=== PATIENT | female | born 1940 | race Caucasian/White ===

== ENCOUNTER → 2018-06-23 15:53 | Outpatient (CLI) | payer MEDICARE, OTHER, SELFPAY ==
--- NOTE | 2018-06-23 15:58 | DI.CT.S_ITS ---
PROCEDURE: CT CHEST WO CON INDICATIONS: INCIDENTAL PULMONARY NODULE TECHNIQUE: Noncontrast 2.0-2.5 mm thick sections acquired from the pulmonary apices to the posterior costophrenic angles. 7 mm thick coronal and sagittal MIP reformats were then acquired. A low radiation dose technique was utilized. COMPARISON: Outside Facility, RG, XR CXR 2V, 04/02/2018, 10:10. FINDINGS: Image quality: Diagnostic, given the low radiation dose technique and absence of IV contrast. Lungs and pleura: Corresponding to the findings on previous outside plain film, there is a soft tissue mass in the base of the lingula that measures 8 x 14 mm in diameter by 11 mm cranial caudal. More anteriorly in the lingular sulcus is a linear scar or atelectasis. No other pulmonary nodules are identified. Mediastinum: Heart size is normal. No pericardial effusion. No mediastinal adenopathy by size criteria. Thoracic aorta and central pulmonary arteries are normal in size. Esophagus is normal in caliber. No hiatal hernia. Bones and chest wall: No suspicious bony lesions. No vertebral body compression fractures. No axillary or supraclavicular adenopathy by size criteria. Thyroid gland appears normal in size.. Abdomen: Visualized upper abdomen solid organs and bowel loops appear normal in the absence of contrast. An 11 mm gallstone is present. IMPRESSION: 1. Solitary lingular nodule corresponding to previous plain film exam. Despite previous history of cervical cancer, solitary metastasis seems unlikely and primary malignancy is of greater concern. Finding could however be benign secondary to previous infection/inflammation. PET/CT imaging is suggested for further evaluation. Fleischner Society criteria for SOLID lung nodule followup. Nodule size (mm)Low-risk patientHigh-risk patient<6 (single or multiple)No routine followup.Optional CT at 12 months. 6-8 (single or multiple)CT at 6-12 months, then optional CT at 18-24 mo.CT at 6-12 months, then CT at 18-24 months. >8 (single)CT at 3 months, PET-CT, or biopsy. Same as for low-risk pts. >8 (multiple)CT at 3-6 months, then optional CT at 18-24 mo.CT at 3-6 months, then CT at 18-24 months. Recommendations do not apply to lung cancer screening, patients with immunosuppression, or patients with known primary cancer. Dictated by: Paul Jamison M.D. on 06/23/2018 at 16:32 Approved by: Paul Jamison M.D. on 06/23/2018 at 16:44
== END ==
PROVIDERS: Family Provider Family Medicine; PCP Family Medicine; Visit Provider Family Medicine
DX: R91.1 Solitary pulmonary nodule (principal); Z85.41 Personal history of malignant neoplasm of cervix uteri
CPT/HCPCS: 71250

== ENCOUNTER → 2019-08-04 09:22 | Outpatient (CLI) | payer MEDICARE, OTHER, SELFPAY ==
--- NOTE | 2019-08-04 | DI.CT.S_ITS ---
PROCEDURE: CT CHEST WO CON INDICATIONS: lung nodule TECHNIQUE: Noncontrast 2.0-2.5 mm thick sections acquired from the pulmonary apices to the posterior costophrenic angles. 7 mm thick axial MIP and 5 mm coronal and sagittal reformats were then acquired. A low radiation dose technique was utilized. COMPARISON: [facility], CT, CT CHEST WO CON, 06/23/2018, 15:57. FINDINGS: Image quality: Diagnostic, given the low radiation dose technique. Lungs and pleura: There is a 1.1 x 1.3 cm lingular nodule, which demonstrates slight interval enlargement (previously 0.8 x 1.2 cm). The nodule also appears slightly increased in density. Mediastinum: Heart size is normal. No pericardial effusion. No mediastinal adenopathy by size criteria. Thoracic aorta and central pulmonary arteries are normal in size. Aortic calcification consistent of atherosclerosis. Esophagus is normal in caliber. No hiatal hernia. Bones and chest wall: No suspicious bony lesions. No vertebral body compression fractures. No axillary or supraclavicular adenopathy by size criteria. Thyroid gland may contain small 3 mm calcified nodule. Abdomen: Visualized upper abdomen solid organs and bowel loops appear normal in the absence of contrast. IMPRESSION: 1. Slight interval enlargement and increased density of a lingular lung nodule. The findings are concerning for primary lung cancer. Recommend a PET CT for followup evaluation. 2. A 3 mm calcified nodule in the left lower lobe. Fleischner Society criteria for SUB-SOLID lung nodule followup. Solitary pure ground-glass nodules<6 mm (ground glass or part solid)No followup needed. 6 mm or larger (ground glass)CT at 6-12 months to confirm persistence, then CT every 2 years until 5 years.6 mm or larger (part solid)CT at 3-6 months to confirm persistence, then annual CT until 5 years if unchanged and solid component remains <6 mm. Multiple sub-solid nodules<6 mmCT at 3-6 months, then CT consider at 2 & 4 years for high risk patients. [address] at 3-6 months. Subsequent management based on most suspicious lesions. Recommendations do not apply to lung cancer screening, patients with immunosuppression, or patients with known primary cancer. Dictated by: Vneessa Courtney M.D. on 08/04/2019 at 12:59 Approved by: Venessa Courtney M.D. on 08/04/2019 at 13:08
== END ==
PROVIDERS: Family Provider Family Medicine; PCP Family Medicine; Visit Provider Family Medicine
DX: R91.1 Solitary pulmonary nodule (principal)
CPT/HCPCS: 71250

== ENCOUNTER → 2021-06-11 08:58 | Outpatient (CLI) | payer MEDICARE, OTHER, SELFPAY ==
[2021-06-11 19:18] LABS: Basophils Absolute Auto 100 /uL (0-100); Basophils Percent Auto 1.1 % (0-2); Eosinophils Absolute Auto 200 /uL (0-450); Eosinophils Percent Auto 4.2 % (2-4); Hematocrit 38.7 % (36-46); Hemoglobin 12.8 g/dL (12.0-16.0); Lymphocytes Absolute Auto 1700 /uL (1100-4500); Lymphocytes Percent Auto 36.6 % (25-40); Mean Corpuscular HGB Conc 33.1 % (30-36); Mean Corpuscular Volume 96.6 fL (80-100); Monocytes Absolute Auto 400 /uL (0-900); Monocytes Percent Auto 8.6 % (3-14); Neutrophils Absolute Auto 2300 /uL (1500-7000); Neutrophils Percent Auto 49.5 % (50-75); Platelet Count 223 X10^3/uL (150-400); Red Blood Cell Count 4.01 X10^6/uL (4.0-5.2); Red Cell Distribution Width 12.9 % (11.6-14.8); White Blood Cell Count 4.7 X10^3/uL (4.5-11.0)
[2021-06-11 19:20] LABS: Add Manual Diff / Slide Review SLIDE REVIEW
[2021-06-11 19:35] LABS: Alanine Aminotransferase 17 IU/L (<35); Albumin 4.4 g/dL (3.5-5.0); Albumin Globulin Ratio 1.6 (1.0-2.8); Alkaline Phosphatase 99 U/L (38-126); Aspartate Aminotransferase 36 IU/L (14-36); BUN Creatinine Ratio 36.6 (6-22); Bilirubin Total 0.3 mg/dL (0.2-1.3); Blood Urea Nitrogen 26 mg/dL (7-17); Calcium 9.7 mg/dL (8.4-10.2); Carbon Dioxide 24 mmol/L (22-32); Chloride 99 mmol/L (98-107); Cholesterol 210 mg/dL (140-199); Estimated Glomerular Filt Rate > 60.0 mL/min (>60); Globulin 2.8 g/dL (1.7-4.1); Glucose 75 mg/dL (80-110); HDL Cholesterol 68 mg/dL (40-60); HEMOLYSIS < 15 (0-50); LDL Cholesterol Calculated 110 mg/dL (<100); Potassium 4.4 mmol/L (3.4-5.1); Sodium 134 mmol/L (137-145); Total Protein 7.2 g/dL (6.3-8.2); Triglycerides 161 mg/dL (35-150)
[2021-06-11 19:50] LABS: Vitamin D 25 Hydroxy (D3) 43.3 ng/mL (30.0-100.0)
[2021-06-11 20:09] LABS: Platelet Estimate Adequate on smear; RBC Morphology Normal Morphology
== END ==
PROVIDERS: Family Provider Family Medicine; PCP Family Medicine; Visit Provider Family Medicine
DX: I10 Essential (primary) hypertension (principal); R00.2 Palpitations; M81.0 Age-related osteoporosis without current pathological fracture; Z13.220 Encounter for screening for lipoid disorders
CPT/HCPCS: 80053; 80061; 82306; 85025

== ENCOUNTER → 2021-12-21 08:34 | Outpatient (CLI) | payer MEDICARE, OTHER, SELFPAY ==
[2021-12-21 19:32] LABS: Add Manual Diff / Slide Review NO; Basophils Absolute Auto 0 /uL (0-100); Basophils Percent Auto 0.8 % (0-2); Eosinophils Absolute Auto 100 /uL (0-450); Hematocrit 37.6 % (36-46); Hemoglobin 12.6 g/dL (12.0-16.0); Lymphocytes Absolute Auto 1600 /uL (1100-4500); Lymphocytes Percent Auto 35.2 % (25-40); Mean Corpuscular HGB Conc 33.6 % (30-36); Mean Corpuscular Hemoglobin 32.3 PG (26-34); Mean Corpuscular Volume 96.3 fL (80-100); Monocytes Absolute Auto 500 /uL (0-900); Monocytes Percent Auto 10.6 % (3-14); Neutrophils Absolute Auto 2400 /uL (1500-7000); Neutrophils Percent Auto 50.4 % (50-75); Platelet Count 230 X10^3/uL (150-400); Red Cell Distribution Width 12.2 % (11.6-14.8); White Blood Cell Count 4.7 X10^3/uL (4.5-11.0)
[2021-12-21 19:43] LABS: Alanine Aminotransferase 15 IU/L (<35); Albumin 4.3 g/dL (3.5-5.0); Albumin Globulin Ratio 1.5 (1.0-2.8); Alkaline Phosphatase 61 U/L (38-126); Aspartate Aminotransferase 29 IU/L (14-36); BUN Creatinine Ratio 13.6 (6-22); Bilirubin Total 0.7 mg/dL (0.2-1.3); Blood Urea Nitrogen 9 mg/dL (7-17); Calcium 9.7 mg/dL (8.4-10.2); Carbon Dioxide 31 mmol/L (22-32); Chloride 102 mmol/L (98-107); Cholesterol 204 mg/dL (140-199); Estimated Glomerular Filt Rate > 60.0 mL/min (>60); Globulin 2.8 g/dL (1.7-4.1); Glucose 88 mg/dL (80-110); HDL Cholesterol 72 mg/dL (40-60); HEMOLYSIS < 15 (0-50); LDL Cholesterol Calculated 116 mg/dL (<100); Potassium 3.9 mmol/L (3.4-5.1); Sodium 138 mmol/L (137-145); Total Protein 7.1 g/dL (6.3-8.2); Triglycerides 81 mg/dL (35-150)
== END ==
PROVIDERS: Family Provider Family Medicine; PCP Family Medicine; Visit Provider Family Medicine
DX: R00.2 Palpitations (principal); I10 Essential (primary) hypertension; Z13.220 Encounter for screening for lipoid disorders
CPT/HCPCS: 80053; 80061; 85025

== ENCOUNTER → 2021-12-26 08:17 | Outpatient (CLI) | payer MEDICARE, OTHER, SELFPAY | PROVIDERS: Family Provider Family Medicine; PCP Family Medicine; Visit Provider Physician Assistant | DX: R30.9 Painful micturition, unspecified (principal) | CPT/HCPCS: 87086 ==

== ENCOUNTER → 2022-10-23 09:13 | Outpatient (CLI) | payer MEDICARE, OTHER, SELFPAY | PROVIDERS: Family Provider Family Medicine; PCP Family Medicine; Visit Provider Nurse Practitioner Adult Health | DX: N89.8 Other specified noninflammatory disorders of vagina (principal) | CPT/HCPCS: 87798; 87801 ==

== ENCOUNTER → 2023-04-03 12:13 | Outpatient (CLI) | payer MEDICARE, OTHER, SELFPAY ==
[2023-04-03 19:22] LABS: Add Manual Diff / Slide Review NO; Basophils Absolute Auto 100 /uL (0-100); Basophils Percent Auto 1.3 % (0-2); Eosinophils Absolute Auto 200 /uL (0-450); HEMOLYSIS < 15 (0-50); Hematocrit 34.3 % (36-46); Hemoglobin 11.5 g/dL (12.0-16.0); Iron 56 ug/dL (37-170); Lymphocytes Absolute Auto 1300 /uL (1100-4500); Lymphocytes Percent Auto 20.4 % (25-40); Mean Corpuscular HGB Conc 33.5 % (30-36); Mean Corpuscular Hemoglobin 31.2 PG (26-34); Mean Corpuscular Volume 93.2 fL (80-100); Monocytes Absolute Auto 700 /uL (0-900); Neutrophils Absolute Auto 4000 /uL (1500-7000); Neutrophils Percent Auto 64.3 % (50-75); Platelet Count 372 X10^3/uL (150-400); Red Blood Cell Count 3.69 X10^6/uL (4.0-5.2); Red Cell Distribution Width 15.7 % (11.6-14.8); White Blood Cell Count 6.3 X10^3/uL (4.5-11.0)
[2023-04-03 19:25] LABS: Alanine Aminotransferase 22 IU/L (<35); Albumin 4.1 g/dL (3.5-5.0); Albumin Globulin Ratio 1.5 (1.0-2.8); Alkaline Phosphatase 77 U/L (38-126); Aspartate Aminotransferase 28 IU/L (14-36); Bilirubin Total 0.4 mg/dL (0.2-1.3); Blood Urea Nitrogen 25 mg/dL (7-17); Calcium 9.1 mg/dL (8.4-10.2); Carbon Dioxide 27 mmol/L (22-32); Chloride 101 mmol/L (98-107); Estimated Glomerular Filt Rate > 60 mL/min (>60); Globulin 2.8 g/dL (1.7-4.1); Glucose 82 mg/dL (80-110); HEMOLYSIS < 15 (0-50); Potassium 4.6 mmol/L (3.4-5.1); Sodium 137 mmol/L (137-145); Total Protein 6.9 g/dL (6.3-8.2)
[2023-04-03 19:34] LABS: Percent Iron Saturation 16 % (15-50); Total Iron Binding Capacity 357 ug/dL (265-497); Transferrin 271 mg/dL (206-381)
== END ==
PROVIDERS: Family Provider Family Medicine; PCP Family Medicine; Visit Provider Family Medicine
DX: I10 Essential (primary) hypertension (principal); D64.9 Anemia, unspecified; E78.2 Mixed hyperlipidemia; E87.6 Hypokalemia
CPT/HCPCS: 80053; 83540; 83550; 85025

== ENCOUNTER → 2023-06-09 08:49 | Outpatient (CLI) | payer MEDICARE, SELFPAY | PROVIDERS: Family Provider Family Medicine; PCP Family Medicine; Visit Provider Family Medicine | DX: R30.0 Dysuria (principal) | CPT/HCPCS: 87077; 87086; 87186 ==

== ENCOUNTER → 2023-06-24 11:58 | Outpatient (CLI) | payer MEDICARE, OTHER, SELFPAY | PROVIDERS: Family Provider Family Medicine; PCP Family Medicine; Visit Provider Family Medicine | DX: R10.32 Left lower quadrant pain (principal); N39.0 Urinary tract infection, site not specified | CPT/HCPCS: 87077; 87086; 87186 ==

== ENCOUNTER → 2023-07-22 12:25 | Outpatient (CLI) | payer MEDICARE, OTHER, SELFPAY | PROVIDERS: Family Provider Family Medicine; PCP Family Medicine; Visit Provider Family Medicine | DX: R39.89 Other symptoms and signs involving the genitourinary system (principal); A49.8 Other bacterial infections of unspecified site; Z16.12 Extended spectrum beta lactamase (ESBL) resistance | CPT/HCPCS: 87077; 87086; 87186 ==

== ENCOUNTER 2023-11-25 09:14 | Emergency (ER) | payer MEDICARE, OTHER, SELFPAY ==
[2023-11-25 09:25] VITALS: BP 199/84; PULSE 69; RESP 14; TEMP 36.4; O2SAT 97; BMI 18.3
[2023-11-25 09:49] VITALS: PULSE 72; O2SAT 97
[2023-11-25 09:58] LABS: Add Manual Diff / Slide Review NO; Basophils Absolute Auto 0 /uL (0-100); Basophils Percent Auto 1.1 % (0-2); Eosinophils Absolute Auto 100 /uL (0-450); Eosinophils Percent Auto 2.2 % (2-4); Hematocrit 39.6 % (36-46); Hemoglobin 13.2 g/dL (12.0-16.0); Lymphocytes Absolute Auto 1300 /uL (1100-4500); Lymphocytes Percent Auto 28.2 % (25-40); Mean Corpuscular HGB Conc 33.3 % (30-36); Mean Corpuscular Hemoglobin 31.1 PG (26-34); Mean Corpuscular Volume 93.4 fL (80-100); Monocytes Absolute Auto 400 /uL (0-900); Monocytes Percent Auto 9.8 % (3-14); Neutrophils Absolute Auto 2700 /uL (1500-7000); Neutrophils Percent Auto 58.7 % (50-75); Platelet Count 311 X10^3/uL (150-400); Red Blood Cell Count 4.24 X10^6/uL (4.0-5.2); White Blood Cell Count 4.5 X10^3/uL (4.5-11.0)
[2023-11-25 10:00] VITALS: PULSE 62; O2SAT 97
--- NOTE | 2023-11-25 10:12 | ED.ABDPAIN ---
HPI - Abdominal Pain General Chief Complaint: Abdominal Pain Stated Complaint: intense pain in L side/spastic colon Time Seen by Provider: 11/25/23 09:39 Source: patient Mode of arrival: Ambulatory History of Present Illness HPI narrative: 83-year-old female here with left lower quadrant abdominal pain. She has not presently having abdominal pain. She is describing more noticeable paroxysms of sharp left lower quadrant abdominal pain that lasts for less than a minute. She has had 3 episodes in the last few months where she would have he is periodic episodes of pain. Typically is improved after having a bowel movement. He has not associated with nausea vomiting fevers or changes in urinary habits or urinary symptoms. Previous abdominal surgeries-had a hysterectomy for cervical cancer. Also does have a history of peripheral vascular disease and fem-pop bypass. Related Data Home Medications Medication Instructions Recorded Confirmed ascorbic acid (vitamin C) 1,000 mg 1,000 mg PO DAILY 05/24/21 07/22/23 tablet Previous Rx's Medication Instructions Recorded amlodipine 5 mg tablet 5 mg PO DAILY #90 tabs 02/28/23 clopidogrel 75 mg tablet 75 mg PO DAILY #90 tabs 09/04/23 rosuvastatin 40 mg tablet 40 mg PO DAILY #30 tabs 09/15/23 losartan 25 mg tablet See Rx Instructions .Route 11/13/23 .COMPLEX #180 tabs Allergies Allergy/AdvReac Type Severity Reaction Status Date / Time No Known Drug Allergies Allergy Unknown Verified 11/25/23 09:31 [NO KNOWN DRUG ALLERGIES] Patient History Medical History (Updated 11/25/23 @ 11:55 by Miahi Brooks MD) Ventral hernia Osteoarthritis of right knee Arthritis of facet joint of cervical spine Osteoporosis Major depressive disorder, single episode, in full remission History of tobacco use Hernia of abdominal wall Solitary pulmonary nodule Surgical History (Updated 02/28/23 @ 17:43 by Roslyn Espinosa MD) Presence of left artificial knee joint Status post hysterectomy History of third molar tooth extraction Status post tubal ligation Family History Father Heart disease Grandfather Heart disease Grandmother Cancer Mother Cancer Grandfather Heart disease Grandmother Heart disease Sister Cancer Social History Smoking Status: Never smoker additional social history: no meat in 60 yrs back to playing tennis [facility] 06/2023 Smoking Status: Never smoker alcohol intake frequency: a few times a month Substance Use Type: does not use Exam Initial Vital Signs Initial Vital Signs: Vital Signs Temperature 97.6 F 11/25/23 09:25 Pulse Rate 69 11/25/23 09:25 Respiratory Rate 14 11/25/23 09:25 Blood Pressure 199/84 H 11/25/23 09:25 Pulse Oximetry 97 11/25/23 09:25 Oxygen Delivery Method Room Air 11/25/23 09:25 Const General: No acute distress [facility] Head: normocephalic and atraumatic Resp Effort & Inspection: normal respiratory effort and able to speak in complete sentences Auscultation: clear to auscultation bilaterally Cardio Other: Regular rhythm rate no murmur or gallop GI Other: Bowel sounds are normal. Abdomen is flat. Abdomen is soft with minimal left lower quadrant tenderness to palpation there is no palpable mass Skin General: dry skin and warm Neuro General: patient alert and patient oriented x3 Course Orders Ordered: ED Orders 11/25/23 09:50 Complete Blood Count AUTO DIFF Stat Comprehensive Metabolic Panel Stat Lipase Stat EKG-12 Lead Stat 11/25/23 10:45 Urine Culture Stat Urine Microscopic Stat 11/25/23 10:56 CT abdomen pelvis w con Stat Vital Signs Vital signs: Vital Signs - 8 hr 11/25/23 12:00 Pulse Rate 65 Blood Pressure 160/74 H Pulse Oximetry 98 Oxygen Delivery Method Room Air MDM - Abdominal Pain Lab Data Lab results narrative: With diff, CMP and urinalysis are unremarkable 11/25/23 09:50 11/25/23 09:50 Labs: Lab Results 11/25/23 11/25/23 Range/Units 09:50 10:45 WBC 4.5 (4.5-11.0) X10^3/uL RBC 4.24 (4.0-5.2) X10^6/uL Hgb 13.2 (12.0-16.0) g/dL Hct 39.6 (36-46) % MCV 93.4 (80-100) fL MCH 31.1 (26-34) PG MCHC 33.3 (30-36) % RDW 14.0 (11.6-14.8) % Plt Count 311 (150-400) X10^3/uL Neut % (Auto) 58.7 (50-75) % Lymph % (Auto) 28.2 (25-40) % Barnes % (Auto) 9.8 (3-14) % Eos % (Auto) 2.2 (2-4) % Baso % (Auto) 1.1 (0-2) % Neut # (Auto) 2700 (8209-4315) /uL Lymph # (Auto) 1300 (3515-4914) /uL Barnes # (Auto) 400 (0-900) /uL Eos # (Auto) 100 (0-450) /uL Baso # (Auto) 0 (0-100) /uL Sodium 137 (137-145) mmol/L Potassium 3.7 (3.4-5.1) mmol/L Chloride 102 (98-107) mmol/L Carbon Dioxide 26 (22-32) mmol/L BUN 17 (7-17) mg/dL Creatinine 0.58 (0.52-1.04) mg/dL Estimated GFR > 60 (>60) mL/min BUN/Creatinine Ratio 29.3 H (6-22) Glucose 112 H (80-110) mg/dL Calcium 9.4 (8.4-10.2) mg/dL Total Bilirubin 0.5 (0.2-1.3) mg/dL AST 30 (14-36) IU/L ALT 22 (<35) IU/L Alkaline Phosphatase 55 (38-126) U/L Total Protein 7.4 (6.3-8.2) g/dL Albumin 4.2 (3.5-5.0) g/dL Globulin 3.2 (1.7-4.1) g/dL Albumin/Globulin Ratio 1.3 (1.0-2.8) Lipase 131 (23-300) U/L Urine RBC 0-1/hpf (0-5/HPF) Urine WBC 0-1/hpf (0-5/HPF) Ur Squamous Epith Cells None seen (0-5/HPF) Urine Bacteria None seen (None) Ur Culture Indicated? Specimen cultured Point of care testing: Urine Dip Bedside Urine Glucose Negative Bedside Urine Bilirubin - Negative Bedside Urine Ketone - Negative Urine Specific [place] 1.000 Bedside Urine Occult Blood - Negative Bedside Urine pH 8.0 Bedside Urine Protein - Negative Bedside Urine Urobilinogen - Negative Bedside Urine Nitrite - Negative Bedside Urine Leukocytes +/- [address] scan - abdomen/pelvis: My Impression: No acute findings on my independent review Radiologist's Impression: PROCEDURE: CT ABDOMEN PELVIS W CON INDICATIONS: llq abd pain TECHNIQUE: After the administration of intravenous contrast, axial sections acquired from the lung bases to the pubic symphysis. Coronal and sagittal reformats were performed. For radiation dose reduction, the following was used: automated exposure control, adjustment of mA and/or kV according to patient size. COMPARISON: [facility], CT, CT ANGIO AORTA RUNOFF, 01/29/2023, 2:25. [facility], CT, CT CHEST WO CON, 08/04/2019, 9:29. FINDINGS: Image quality: Diagnostic. Lower Chest: 14 mm nodule within the left anterior lung base is present, as before. ABDOMEN: Liver: No solid mass. Gallbladder: There is a calculus within the gallbladder lumen. Biliary ducts: No biliary dilation. Pancreas: No evidence of pancreatic mass. There is dilatation of the pancreatic duct, predominantly within the head and neck, with a maximal diameter of roughly 6 mm, as before. Spleen: Size is within normal limits. Adrenal Glands: No adrenal nodules. Kidneys and Ureters: There is severe right renal atrophy. Left kidney is grossly unremarkable. Stomach and Bowel: Normal colonic caliber, without significant wall thickening. Normal appendix. Peritoneum: No abnormal intraperitoneal fluid. No free air. Ventral Wall: No hernia. Abdominal Nodes: No retroperitoneal or mesenteric adenopathy by size criteria. Vessels: Aorta and inferior vena cava are normal in size. PELVIS: Pelvic Organs: Unremarkable. Bladder: Unremarkable. Pelvic Nodes: No enlarged lymph nodes. Miscellaneous: No inguinal hernias are seen. Bones: No aggressive osseous abnormality. IMPRESSION: 1. No acute process. 2. No change in left lung base nodule. 3. Stable pancreatic ductal dilatation. This could be further assessed with nonemergent ERCP, if clinically indicated. 4. Normal appendix. ECG Data Interpretation: EKG shows normal sinus rhythm at 71 there are Q-waves V1 through V3 indicating a previous anteroseptal infarction no acute ST segment changes MDM Narrative Medical decision making narrative: 83-year-old female with left lower quadrant abdominal pain. Pain is transient, she had a little bit of residual tenderness therefore imaging was done, no acute findings to suggest diverticulitis bowel obstruction urinary tract infection ureteral stone or other process requiring acute treatment today. Discharge Plan Departure Patient Disposition: Home Clinical Impression: Abdominal pain Qualifiers: Abdominal location: left lower quadrant Qualified Code(s): R10.32 - Left lower quadrant pain Activity Restrictions/Additional Instructions: No serious cause for abdominal pain is found today. I think it is safe to go home, make sure that you are getting adequate fluids and adequate fiber such as psyllium to keep your bowels moving. If you are having increasing pain fevers vomiting or other acute symptoms recheck in the emergency department. As always I recommend that you follow-up with your primary care doctor soon. Prescriptions: No Action clopidogrel 75 mg tablet 75 mg PO DAILY Qty: 90 1RF rosuvastatin 40 mg tablet 40 mg PO DAILY Qty: 30 2RF losartan 25 mg tablet See Rx Instructions .ROUTE .COMPLEX Qty: 180 3RF Dose Instruction: TAKE THREE TABLETS BY MOUTH EVERY DAY Rx Instructions: Take 2 PO QAM and 1 PO QPM ascorbic acid (vitamin C) 1,000 mg tablet 1,000 mg PO DAILY amlodipine 5 mg tablet 5 mg PO DAILY Qty: 90 2RF Referrals: Roslyn Espinosa MD [Primary Care Provider] - Stand Alone Forms: Patient Portal/API
[2023-11-25 10:14] VITALS: BP 177/77; O2SAT 95
[2023-11-25 10:14] LABS: Alanine Aminotransferase 22 IU/L (<35); Albumin 4.2 g/dL (3.5-5.0); Albumin Globulin Ratio 1.3 (1.0-2.8); Alkaline Phosphatase 55 U/L (38-126); Aspartate Aminotransferase 30 IU/L (14-36); BUN Creatinine Ratio 29.3 (6-22); Bilirubin Total 0.5 mg/dL (0.2-1.3); Blood Urea Nitrogen 17 mg/dL (7-17); Calcium 9.4 mg/dL (8.4-10.2); Carbon Dioxide 26 mmol/L (22-32); Chloride 102 mmol/L (98-107); Estimated Glomerular Filt Rate > 60 mL/min (>60); Globulin 3.2 g/dL (1.7-4.1); Glucose 112 mg/dL (80-110); HEMOLYSIS < 15 (0-50); Lipase 131 U/L (23-300); Potassium 3.7 mmol/L (3.4-5.1); Sodium 137 mmol/L (137-145); Total Protein 7.4 g/dL (6.3-8.2)
--- NOTE | 2023-11-25 10:56 | DI.CT.S_ITS ---
PROCEDURE: CT ABDOMEN PELVIS W CON INDICATIONS: llq abd pain TECHNIQUE: After the administration of intravenous contrast, axial sections acquired from the lung bases to the pubic symphysis. Coronal and sagittal reformats were performed. For radiation dose reduction, the following was used: automated exposure control, adjustment of mA and/or kV according to patient size. COMPARISON: [facility], CT, CT ANGIO AORTA RUNOFF, 01/29/2023, 2:25. [facility], CT, CT CHEST WO CON, 08/04/2019, 9:29. FINDINGS: Image quality: Diagnostic. Lower Chest: 14 mm nodule within the left anterior lung base is present, as before. ABDOMEN: Liver: No solid mass. Gallbladder: There is a calculus within the gallbladder lumen. Biliary ducts: No biliary dilation. Pancreas: No evidence of pancreatic mass. There is dilatation of the pancreatic duct, predominantly within the head and neck, with a maximal diameter of roughly 6 mm, as before. Spleen: Size is within normal limits. Adrenal Glands: No adrenal nodules. Kidneys and Ureters: There is severe right renal atrophy. Left kidney is grossly unremarkable. Stomach and Bowel: Normal colonic caliber, without significant wall thickening. Normal appendix. Peritoneum: No abnormal intraperitoneal fluid. No free air. Ventral Wall: No hernia. Abdominal Nodes: No retroperitoneal or mesenteric adenopathy by size criteria. Vessels: Aorta and inferior vena cava are normal in size. PELVIS: Pelvic Organs: Unremarkable. Bladder: Unremarkable. Pelvic Nodes: No enlarged lymph nodes. Miscellaneous: No inguinal hernias are seen. Bones: No aggressive osseous abnormality. IMPRESSION: 1. No acute process. 2. No change in left lung base nodule. 3. Stable pancreatic ductal dilatation. This could be further assessed with nonemergent ERCP, if clinically indicated. 4. Normal appendix. Dictated by: Griselda Nichols M.D. on 11/25/2023 at 11:05 Approved by: Griselda Nichols M.D. on 11/25/2023 at 11:09
[2023-11-25 11:01] LABS: Bacteria Urine None Seen; Culture Indicated Urine Specimen Cultured; RBC Urine 0-1/HPF (0-5/HPF); Squamous Epithelial Cell Urine None Seen (0-5/HPF); WBC Urine 0-1/HPF (0-5/HPF)
[2023-11-25 12:00] VITALS: BP 160/74; PULSE 65; O2SAT 98
== END 2023-11-25 12:00 | disposition home or self-care (01) ==
PROVIDERS: Emergency Provider Emergency Medicine; Family Provider Family Medicine; PCP Family Medicine
DX: R10.32 Left lower quadrant pain (principal)
CPT/HCPCS: 36415; 74177; 80053; 81003; 81015; 83690; 85025; 87077; 87086; 87147; 93005; 93010; 99284

== ENCOUNTER → 2024-04-30 09:04 | Outpatient (CLI) | payer MEDICARE, OTHER, SELFPAY ==
[2024-04-30 18:32] LABS: Cholesterol 117 mg/dL (140-199); HDL Cholesterol 61 mg/dL (40-60); LDL Cholesterol Calculated 42 mg/dL (<100); Triglycerides 68 mg/dL (35-150)
== END ==
PROVIDERS: PCP Family Medicine
DX: E78.5 Hyperlipidemia, unspecified (principal)
CPT/HCPCS: 80061

== ENCOUNTER → 2024-07-20 09:26 | Outpatient (CLI) | payer MEDICARE, OTHER, SELFPAY | PROVIDERS: PCP Family Medicine; Visit Provider Physician Assistant Medical | DX: N39.0 Urinary tract infection, site not specified (principal) | CPT/HCPCS: 87086 ==

== ENCOUNTER 2024-07-20 13:51 | Inpatient (IN) | payer MEDICARE, OTHER, SELFPAY ==
[2024-07-20] VITALS (21 sets, daily range): BP systolic 129–197; BP diastolic 60–88; PULSE 68–81; RESP 16–18; TEMP 36.5–36.8; O2SAT 93–98; BMI 17.6
[2024-07-20 14:37] LABS: Bacteria Urine None Seen; Culture Indicated Urine Specimen Cultured; RBC Urine None Seen (0-5/HPF); Squamous Epithelial Cell Urine None Seen (0-5/HPF); Urine Volume 10mL (spun); WBC Urine 0-1/HPF (0-5/HPF)
[2024-07-20 15:53] LABS: Add Manual Diff / Slide Review NO; Basophils Absolute Auto 0 /uL (0-100); Basophils Percent Auto 0.3 % (0-2); Eosinophils Absolute Auto 0 /uL (0-450); Eosinophils Percent Auto 0.9 % (2-4); Hemoglobin 11.4 g/dL (12.0-16.0); Lymphocytes Absolute Auto 600 /uL (1100-4500); Lymphocytes Percent Auto 11.3 % (25-40); Mean Corpuscular HGB Conc 33.5 % (30-36); Mean Corpuscular Hemoglobin 29.3 PG (26-34); Mean Corpuscular Volume 87.6 fL (80-100); Monocytes Absolute Auto 1100 /uL (0-900); Monocytes Percent Auto 19.9 % (3-14); Neutrophils Absolute Auto 3700 /uL (1500-7000); Neutrophils Percent Auto 67.6 % (50-75); Platelet Count 298 X10^3/uL (150-400); Red Blood Cell Count 3.88 X10^6/uL (4.0-5.2); Red Cell Distribution Width 15.8 % (11.6-14.8); White Blood Cell Count 5.5 X10^3/uL (4.5-11.0)
[2024-07-20 16:10] LABS: Alanine Aminotransferase 13 IU/L (<35); Albumin 3.5 g/dL (3.5-5.0); Albumin Globulin Ratio 1.4 (1.0-2.8); Alkaline Phosphatase 55 U/L (38-126); Aspartate Aminotransferase 26 IU/L (14-36); BUN Creatinine Ratio 8.3 (6-22); Bilirubin Total 0.6 mg/dL (0.2-1.3); Blood Urea Nitrogen 19 mg/dL (7-17); Carbon Dioxide 24 mmol/L (22-32); Chloride 91 mmol/L (98-107); Estimated Glomerular Filt Rate 21 mL/min (>60); Globulin 2.5 g/dL (1.7-4.1); Glucose 94 mg/dL (80-110); HEMOLYSIS < 15 (0-50); Lipase 141 U/L (23-300); Potassium 5.3 mmol/L (3.4-5.1); Sodium 124 mmol/L (137-145)
[2024-07-20] MEDS: SODIUM CHLORIDE 0.9% 1,000 ML 1000 ML IV (16:57)
--- NOTE | 2024-07-20 17:10 | ED_ITS ---
HPI - Nausea/Vomiting/Diarrhea <DO Kelly Jimenez Last Filed: 07/29/24 04:42> General Chief complaint: Nausea/Vomiting/Diarrhea Stated complaint: diarrhea t-3 Time Seen by Provider: 07/20/24 15:24 Source: patient Mode of arrival: Ambulatory Limitations: no limitations History of Present Illness HPI Narrative: 84-year-old female with history of hypertension, dyslipidemia, prior fem-pop with angioplasty for her lower extremity on Plavix daily. Patient presents with complaint of about 5 days of diarrhea. Patient states no fevers. She had a glass of water at the office and threw up once this morning but has not had any other vomiting. Denies any chest pain or shortness of breath, no lightheadedness. Patient denies any abdominal pain. Denies any dysuria urgency or frequency. States she has had some decreased urine output. Was taking senna regularly because she had had constipation in the past after having narcotics remotely. She was taking it regularly. She has since stopped it. She denies any black or bloody stools. Patient denies any altered mental status. She had has been also note that they recently had their septic take drained and that there is a possibility she had contact with a hose that they used. Patient states surgeries include femoral pop bypass on her lower extremity has had angioplasty on that extremity as well. No known drug allergies. No regular tobacco, alcohol or recreational drugs. Patient lives on [facility]. Primary care is Roslyn Espinosa. She is accompanied by her . Related Data Home Medications Medication Instructions Recorded Confirmed ascorbic acid (vitamin C) 1,000 mg 1,000 mg PO DAILY 05/24/21 07/20/24 tablet aspirin 81 mg chewable tablet 81 mg PO 1XD 07/20/24 07/21/24 clopidogrel 75 mg tablet 75 mg PO DAILY 07/20/24 07/20/24 Previous Rx's Medication Instructions Recorded amlodipine 5 mg tablet 5 mg PO DAILY for BP. take every 12/12/23 day even if normal. #90 tabs rosuvastatin 40 mg tablet 40 mg PO DAILY #90 tabs 03/15/24 Allergies Allergy/AdvReac Type Severity Reaction Status Date / Time No Known Drug Allergies Allergy Unknown Verified 12/22/23 14:10 [NO KNOWN DRUG ALLERGIES] Review of Systems <DO Kelly Jimenez Last Filed: 07/29/24 04:42> Review of Systems ROS Unobtainable: All systems reviewed & are unremarkable except as noted in HPI and below Patient History <Ashtyn Sandoval DO - Last Filed: 07/29/24 04:42> Medical History Ventral hernia Osteoarthritis of right knee Arthritis of facet joint of cervical spine Osteoporosis Major depressive disorder, single episode, in full remission History of tobacco use Hernia of abdominal wall Solitary pulmonary nodule Surgical History Presence of left artificial knee joint Status post hysterectomy History of third molar tooth extraction Status post tubal ligation Family History Father Heart disease Grandfather Heart disease Grandmother Cancer Mother Cancer Grandfather Heart disease Grandmother Heart disease Sister Cancer Social History household members: significant other Smoking Status: Never smoker additional social history: no meat in 60 yrs back to playing tennis [facility] 06/2023 Smoking Status: Never smoker alcohol intake frequency: a few times a month Substance Use Type: does not use Exam <Ashtyn Sandoval DO - Last Filed: 07/29/24 04:42> Narrative Exam Narrative: GENERAL: Alert and oriented x three, thin elderly female in mild distress. HEENT: Head normocephalic, atraumatic, EOMI, pupils reactive, face symmetric, moist mucous membranes NECK: Supple, full range of motion CARDIOVASCULAR: Regular rate and rhythm without murmurs, rubs or gallops. No JVD. RESPIRATORY: Breath sounds equal bilaterally, no wheezes rales or rhonchi. No tachypnea or accessory muscle use. ABDOMEN: Soft, nontender. Mild generalized tenderness on examination. Normoactive bowel sounds all 4 quadrants. No guarding or rebound, rigidity, no mass : No CVA tenderness EXTREMITIES: Normal range of motion, no clubbing or edema. Neurovascularly intact NEUROLOGICAL: Cranial nerves II through XII grossly intact. Moving all extremities SKIN: Warm, dry, no petechiae, no rashes or lesions. Initial Vital Signs Initial Vital Signs: Vital Signs Temperature 97.7 F 07/20/24 13:54 Pulse Rate 76 07/20/24 13:54 Respiratory Rate 16 07/20/24 13:54 Blood Pressure 197/81 H 07/20/24 13:54 Pulse Oximetry 98 07/20/24 13:54 Oxygen Delivery Method Room Air 07/20/24 13:54 <Ashtyn Mueller MD - Last Filed: 07/21/24 01:25> Initial Vital Signs Initial Vital Signs: Vital Signs Temperature 97.7 F 07/20/24 13:54 Pulse Rate 76 07/20/24 13:54 Respiratory Rate 16 07/20/24 13:54 Blood Pressure 197/81 H 07/20/24 13:54 Pulse Oximetry 98 07/20/24 13:54 Oxygen Delivery Method Room Air 07/20/24 13:54 Course <Ashtyn Sandoval DO - Last Filed: 07/29/24 04:42> Orders Ordered: Discontinued Medications Acetaminophen (Acetaminophen 325 Mg Tablet) 650 mg PO Q6H PRN PRN Reason: Fever/Mild Pain (1-3) Amlodipine Besylate (Amlodipine 5 Mg Tablet) 5 mg PO DAILY [facility] Last Admin: 07/21/24 09:02 Dose: 5 mg Documented By: STEFF Amlodipine Besylate (Amlodipine 5 Mg Tablet) 5 mg PO NOW ONE Stop: 07/21/24 20:15 Last Admin: 07/21/24 21:31 Dose: 5 mg Documented By: SR Atorvastatin Calcium (Atorvastatin 20 Mg Tablet) 40 mg PO BEDTIME [facility] Last Admin: 07/21/24 21:31 Dose: 40 mg Documented By: SR Clopidogrel Bisulfate (Clopidogrel 75 Mg Tablet) 75 mg PO DAILY [facility] Last Admin: 07/22/24 08:41 Dose: 75 mg Documented By: Admin: 07/21/24 09:02 Dose: 75 mg Documented By: BT Heparin Sodium (Porcine) (Heparin 5,000 Unit/Ml Vial) 5,000 unit SUBCUT BID [facility] Last Admin: 07/22/24 08:41 Dose: Not Given Documented By: Admin: 07/21/24 20:01 Dose: Not Given Documented By: Admin: 07/21/24 09:03 Dose: Not Given Documented By: Admin: 07/20/24 22:42 Dose: 5,000 unit Documented By: MM Sodium Chloride (Normal Saline 0.9%) 1,000 mls @ 1,000 mls/hr IV BOLUS ONE Stop: 07/20/24 17:42 Last Infusion: 07/20/24 17:49 Dose: Infused Documented By: DKSabiha Admin: 07/20/24 16:57 Dose: 1,000 mls/hr Documented By: HARLEEN Lactated Ringer's (Lactated Ringers) 1,000 mls @ 100 mls/hr IV CONT DOE Last Admin: 07/20/24 22:32 Dose: Not Given Documented By: BASIA Sodium Chloride (Normal Saline 0.9%) 1,000 mls @ 100 mls/hr IV CONT DOE Last Admin: 07/22/24 06:45 Dose: 100 mls/hr Documented By: Infusion: 07/22/24 05:57 Dose: Infused Documented By: Admin: 07/21/24 19:57 Dose: 100 mls/hr Documented By: Infusion: 07/21/24 19:03 Dose: Infused Documented By: Admin: 07/21/24 09:03 Dose: 100 mls/hr Documented By: Infusion: 07/21/24 08:40 Dose: Infused Documented By: Admin: 07/20/24 22:40 Dose: 100 mls/hr Documented By: BASIA Azithromycin 500 mg/ Dextrose 250 mls @ 250 mls/hr IV Q24H DOE Last Infusion: 07/22/24 08:40 Dose: Infused Documented By: Admin: 07/21/24 19:58 Dose: 250 mls/hr Documented By: Infusion: 07/21/24 09:03 Dose: Infused Documented By: Admin: 07/20/24 22:41 Dose: 250 mls/hr Documented By: BASIA Naloxone HCl (Naloxone 0.4 Mg/Ml Vial) 0.2 mg IV Q2MIN PRN PRN Reason: Opiate Reversal Ondansetron HCl (Ondansetron 4 Mg/2 Ml Inj) 4 mg IV Q8HR PRN PRN Reason: Nausea And Vomiting Prochlorperazine (Prochlorperazine 10 Mg/2 Ml Vial) 5 mg IV Q6HR PRN PRN Reason: Nausea Last Admin: 07/20/24 22:41 Dose: 5 mg Documented By: BASIA Vital Signs Vital signs: Vital Signs - 8 hr 07/20/24 17:35 07/20/24 18:00 07/20/24 18:15 Pulse Rate 78 77 78 Blood Pressure Pulse Oximetry 95 94 94 07/20/24 18:15 07/20/24 18:39 07/20/24 19:00 Pulse Rate 78 Blood Pressure 161/72 H 148/69 H Pulse Oximetry 95 07/20/24 19:00 07/20/24 19:30 07/20/24 19:30 Pulse Rate 75 74 Blood Pressure 142/64 H Pulse Oximetry 94 95 <Ashtyn Mueller MD - Last Filed: 07/21/24 01:25> Orders Ordered: Discontinued Medications Acetaminophen (Acetaminophen 325 Mg Tablet) 650 mg PO Q6H PRN PRN Reason: Fever/Mild Pain (1-3) Amlodipine Besylate (Amlodipine 5 Mg Tablet) 5 mg PO DAILY [facility] Last Admin: 07/21/24 09:02 Dose: 5 mg Documented By: BT Amlodipine Besylate (Amlodipine 5 Mg Tablet) 5 mg PO NOW ONE Stop: 07/21/24 20:15 Last Admin: 07/21/24 21:31 Dose: 5 mg Documented By: SR Atorvastatin Calcium (Atorvastatin 20 Mg Tablet) 40 mg PO BEDTIME [facility] Last Admin: 07/21/24 21:31 Dose: 40 mg Documented By: SR Clopidogrel Bisulfate (Clopidogrel 75 Mg Tablet) 75 mg PO DAILY [facility] Last Admin: 07/22/24 08:41 Dose: 75 mg Documented By: Admin: 07/21/24 09:02 Dose: 75 mg Documented By: BT Heparin Sodium (Porcine) (Heparin 5,000 Unit/Ml Vial) 5,000 unit SUBCUT BID [facility] Last Admin: 07/22/24 08:41 Dose: Not Given Documented By: Admin: 07/21/24 20:01 Dose: Not Given Documented By: Admin: 07/21/24 09:03 Dose: Not Given Documented By: Admin: 07/20/24 22:42 Dose: 5,000 unit Documented By: MM Sodium Chloride (Normal Saline 0.9%) 1,000 mls @ 1,000 mls/hr IV BOLUS ONE Stop: 07/20/24 17:42 Last Infusion: 07/20/24 17:49 Dose: Infused Documented By: DKSabiha Admin: 07/20/24 16:57 Dose: 1,000 mls/hr Documented By: DKSabiha Lactated Ringer's (Lactated Ringers) 1,000 mls @ 100 mls/hr IV CONT [facility] Last Admin: 07/20/24 22:32 Dose: Not Given Documented By: BASIA Sodium Chloride (Normal Saline 0.9%) 1,000 mls @ 100 mls/hr IV CONT DOE Last Admin: 07/22/24 06:45 Dose: 100 mls/hr Documented By: Infusion: 07/22/24 05:57 Dose: Infused Documented By: Admin: 07/21/24 19:57 Dose: 100 mls/hr Documented By: Infusion: 07/21/24 19:03 Dose: Infused Documented By: Admin: 07/21/24 09:03 Dose: 100 mls/hr Documented By: Infusion: 07/21/24 08:40 Dose: Infused Documented By: Admin: 07/20/24 22:40 Dose: 100 mls/hr Documented By: BASIA Azithromycin 500 mg/ Dextrose 250 mls @ 250 mls/hr IV Q24H [facility] Last Infusion: 07/22/24 08:40 Dose: Infused Documented By: Admin: 07/21/24 19:58 Dose: 250 mls/hr Documented By: Infusion: 07/21/24 09:03 Dose: Infused Documented By: Admin: 07/20/24 22:41 Dose: 250 mls/hr Documented By: BASIA Naloxone HCl (Naloxone 0.4 Mg/Ml Vial) 0.2 mg IV Q2MIN PRN PRN Reason: Opiate Reversal Ondansetron HCl (Ondansetron 4 Mg/2 Ml Inj) 4 mg IV Q8HR PRN PRN Reason: Nausea And Vomiting Prochlorperazine (Prochlorperazine 10 Mg/2 Ml Vial) 5 mg IV Q6HR PRN PRN Reason: Nausea Last Admin: 07/20/24 22:41 Dose: 5 mg Documented By: BASIA Vital Signs Vital signs: Vital Signs - 8 hr 07/20/24 17:35 07/20/24 18:00 07/20/24 18:15 Pulse Rate 78 77 78 Blood Pressure Pulse Oximetry 95 94 94 07/20/24 18:15 07/20/24 18:39 07/20/24 19:00 Pulse Rate 78 Blood Pressure 161/72 H 148/69 H Pulse Oximetry 95 09/03/24 19:00 07/20/24 19:30 07/20/24 19:30 Pulse Rate 75 74 Blood Pressure 142/64 H Pulse Oximetry 94 95 MDM - Nausea/Vomiting/Diarrhea <Ashtyn Finnegan Jaime, - Last Filed: 07/29/24 04:42> Lab Data 07/22/24 12:05 07/22/24 12:05 Labs: Lab Results 07/20/24 07/20/24 07/20/24 Range/Units 14:25 15:37 16:48 WBC 5.5 (4.5-11.0) X10^3/uL RBC 3.88 L (4.0-5.2) X10^6/uL Hgb 11.4 L (12.0-16.0) g/dL Hct 34.0 L (36-46) % MCV 87.6 (80-100) fL MCH 29.3 (26-34) PG MCHC 33.5 (30-36) % RDW 15.8 H (11.6-14.8) % Plt Count 298 (150-400) X10^3/uL Neut % (Auto) 67.6 (50-75) % Lymph % (Auto) 11.3 L (25-40) % [place] % (Auto) 19.9 H (3-14) % Eos % (Auto) 0.9 L (2-4) % Baso % (Auto) 0.3 (0-2) % Neut # (Auto) 3700 (6404-5712) /uL Lymph # (Auto) 600 L (0829-8339) /uL [place] # (Auto) 1100 H (0-900) /uL Eos # (Auto) 0 (0-450) /uL Baso # (Auto) 0 (0-100) /uL Sodium 124 L (137-145) mmol/L Potassium 5.3 H (3.4-5.1) mmol/L Chloride 91 L (98-107) mmol/L Carbon Dioxide 24 (22-32) mmol/L BUN 19 H (7-17) mg/dL Creatinine 2.28 H (0.52-1.04) mg/dL Estimated GFR 21 L (>60) mL/min BUN/Creatinine Ratio 8.3 (6-22) Glucose 94 (80-110) mg/dL Calcium 9.0 (8.4-10.2) mg/dL Total Bilirubin 0.6 (0.2-1.3) mg/dL AST 26 (14-36) IU/L ALT 13 (<35) IU/L Alkaline Phosphatase 55 (38-126) U/L Total Protein 6.0 L (6.3-8.2) g/dL Albumin 3.5 (3.5-5.0) g/dL Globulin 2.5 (1.7-4.1) g/dL Albumin/Globulin Ratio 1.4 (1.0-2.8) Lipase 141 (23-300) U/L Urine RBC None seen (0-5/HPF) Urine WBC 0-1/hpf (0-5/HPF) Ur Squamous Epith Cells None seen (0-5/HPF) Urine Bacteria None seen (None) Ur Culture Indicated? Specimen cultured Vol Urine Centrifuged 10ml (spun) Ur Random Sodium 10 L (30-90) mmol/L Urine Creatinine 67.69 mg/dL Stl C. cayetanensis PCR Not detected (Not Detect) Stool Rotavirus (PCR) Not detected (Not Detect) Stool Adenovirus (PCR) Not detected (Not Detect) Stool Astrovirus (PCR) Not detected (Not Detect) Stool Cryptosporidium PCR Not detected (Not Detect) Stl E.coli Shiga Tox PCR Not detected (Not Detect) St Sh/Enteroin Ecoli PCR Not detected (Not Detect) Stl Enterotoxigenic E PCR Not detected (Not Detect) Stool EPEC (PCR) Not detected (Not Detect) Stl E. histolytica PCR Not detected (Not Detect) Stool Giardia Lamblia PCR Not detected (Not Detect) Stool Sapovirus (PCR) Not detected (Not Detect) Stl P. shigelloides PCR Not detected (Not Detect) St Y.enterocolitica PCR Not detected (Not Detect) Stool Vibrio (PCR) Not detected (Not Detect) Stl Vibrio cholerae PCR Not detected (Not Detect) Stl Enteroaggr Ecoli PCR Not detected (Not Detect) Stl Norovirus GI/GII PCR Not detected (Not Detect) Campylobacter (PCR) Detected (Not Detect) C. difficile Tox (PCR) Not detected (Not Detect) Salmonella (PCR) Not detected (Not Detect) Urine Dip Bedside Urine Glucose Negative Bedside Urine Bilirubin - Negative Bedside Urine Ketone - Negative Urine Specific [place] 1.000 Bedside Urine Occult Blood - Negative Bedside Urine pH 6.5 Bedside Urine Protein +/- 15 Bedside Urine Urobilinogen - Negative Bedside Urine Nitrite - Negative Bedside Urine Leukocytes +/- 15 Esterase MDM Narrative Medical decision making narrative: 84-year-old female with a about 5 days of persistent diarrhea, 1 episode of vomiting. Some mild abdominal discomfort. Labs white count of 5.5 hemoglobin 11.4, platelets of 298. Predominance of monocytes. Chemistry with sodium of 124, prior from November 2023 is 137 potassium 5.3 chloride 91, CO2 of 24 BUN 19 creatinine 2.28 prior November was 0.58. LFTs are negative. Lipase is 141. Urine micro shows no red cells 1 white cell no squamous no bacteria was sent for culture. Point of care is positive for leukocyte esterase. GI panel is pending CT KUB was obtained to evaluate for any obstructive process patient appears to possibly have an acute kidney injury. Plan for hospitalization for hyponatremia, CYNTHIA in the setting of frequent diarrhea. GI panel was pending. Patient signed out to Dr. Mueller while awaiting rest of workup. Dr. Mueller -care of patient is signed out to me by daytime physician. Independent review of patient and chart performed. GI panel positive for Campylobacter, which would explain diarrhea and subsequent CYNTHIA. CT of the abdomen and pelvis shows generalized colitis, likely from the Campylobacter. Petit placed with drainage of 600 cc of yellow urine. Patient to be admitted for further treatment of her condition. <Ashtyn Mueller MD - Last Filed: 07/21/24 01:25> Lab Data Labs: Lab Results 07/20/24 07/20/24 07/20/24 Range/Units 14:25 15:37 16:48 WBC 5.5 (4.5-11.0) X10^3/uL RBC 3.88 L (4.0-5.2) X10^6/uL Hgb 11.4 L (12.0-16.0) g/dL Hct 34.0 L (36-46) % MCV 87.6 (80-100) fL MCH 29.3 (26-34) PG MCHC 33.5 (30-36) % RDW 15.8 H (11.6-14.8) % Plt Count 298 (150-400) X10^3/uL Neut % (Auto) 67.6 (50-75) % Lymph % (Auto) 11.3 L (25-40) % [place] % (Auto) 19.9 H (3-14) % Eos % (Auto) 0.9 L (2-4) % Baso % (Auto) 0.3 (0-2) % Neut # (Auto) 3700 (5422-2212) /uL Lymph # (Auto) 600 L (4249-2764) /uL [place] # (Auto) 1100 H (0-900) /uL Eos # (Auto) 0 (0-450) /uL Baso # (Auto) 0 (0-100) /uL Sodium 124 L (137-145) mmol/L Potassium 5.3 H (3.4-5.1) mmol/L Chloride 91 L (98-107) mmol/L Carbon Dioxide 24 (22-32) mmol/L BUN 19 H (7-17) mg/dL Creatinine 2.28 H (0.52-1.04) mg/dL Estimated GFR 21 L (>60) mL/min BUN/Creatinine Ratio 8.3 (6-22) Glucose 94 (80-110) mg/dL Calcium 9.0 (8.4-10.2) mg/dL Total Bilirubin 0.6 (0.2-1.3) mg/dL AST 26 (14-36) IU/L ALT 13 (<35) IU/L Alkaline Phosphatase 55 (38-126) U/L Total Protein 6.0 L (6.3-8.2) g/dL Albumin 3.5 (3.5-5.0) g/dL Globulin 2.5 (1.7-4.1) g/dL Albumin/Globulin Ratio 1.4 (1.0-2.8) Lipase 141 (23-300) U/L Urine RBC None seen (0-5/HPF) Urine WBC 0-1/hpf (0-5/HPF) Ur Squamous Epith Cells None seen (0-5/HPF) Urine Bacteria None seen (None) Ur Culture Indicated? Specimen cultured Vol Urine Centrifuged 10ml (spun) Ur Random Sodium 10 L (30-90) mmol/L Urine Creatinine 67.69 mg/dL Stl C. cayetanensis PCR Not detected (Not Detect) Stool Rotavirus (PCR) Not detected (Not Detect) Stool Adenovirus (PCR) Not detected (Not Detect) Stool Astrovirus (PCR) Not detected (Not Detect) Stool Cryptosporidium PCR Not detected (Not Detect) Stl E.coli Shiga Tox PCR Not detected (Not Detect) St Sh/Enteroin Ecoli PCR Not detected (Not Detect) Stl Enterotoxigenic E PCR Not detected (Not Detect) Stool EPEC (PCR) Not detected (Not Detect) Stl E. histolytica PCR Not detected (Not Detect) Stool Giardia Lamblia PCR Not detected (Not Detect) Stool Sapovirus (PCR) Not detected (Not Detect) Stl P. shigelloides PCR Not detected (Not Detect) St Y.enterocolitica PCR Not detected (Not Detect) Stool Vibrio (PCR) Not detected (Not Detect) Stl Vibrio cholerae PCR Not detected (Not Detect) Stl Enteroaggr Ecoli PCR Not detected (Not Detect) Stl Norovirus GI/GII PCR Not detected (Not Detect) Campylobacter (PCR) Detected (Not Detect) C. difficile Tox (PCR) Not detected (Not Detect) Salmonella (PCR) Not detected (Not Detect) Urine Dip Bedside Urine Glucose Negative Bedside Urine Bilirubin - Negative Bedside Urine Ketone - Negative Urine Specific [place] 1.000 Bedside Urine Occult Blood - Negative Bedside Urine pH 6.5 Bedside Urine Protein +/- 15 Bedside Urine Urobilinogen - Negative Bedside Urine Nitrite - Negative Bedside Urine Leukocytes +/- 15 Esterase MDM Narrative Medical decision making narrative: 84-year-old female with a about 5 days of persistent diarrhea, 1 episode of vomiting. Some mild abdominal discomfort. Labs white count of 5.5 hemoglobin 11.4, platelets of 298. Predominance of monocytes. Chemistry with sodium of 124, prior from November 2023 is 137 potassium 5.3 chloride 91, CO2 of 24 BUN 19 creatinine 2.28 prior November was 0.58. LFTs are negative. Lipase is 141. Urine micro shows no red cells 1 white cell no squamous no bacteria was sent for culture. Point of care is positive for leukocyte esterase. GI panel is pending CT KUB was obtained to evaluate for any obstructive process patient appears to possibly have an acute kidney injury. Plan for hospitalization for hyponatremia, CYNTHIA in the setting of frequent diarrhea. Dr. Mueller -care of patient is signed out to me by daytime physician. Independent review of patient and chart performed. GI panel positive for Campylobacter, which would explain diarrhea and subsequent CYNTHIA. CT of the abdomen and pelvis shows generalized colitis, likely from the Campylobacter. Petit placed with drainage of 600 cc of yellow urine. Patient to be admitted for further treatment of her condition. Discharge Plan Departure Patient Disposition: Admitted as Observation Clinical Impression: Hyponatremia, CYNTHIA (acute kidney injury), Diarrhea, Bacteremia due to Campylobacter Admit Date/Time: 07/20/24 19:59 Admit Provider: Justin Valenzuela
--- NOTE | 2024-07-20 17:32 | DI.CT.S_ITS ---
PROCEDURE: CT KIDNEY URETER BLADDER (KUB) INDICATIONS: ? tomy, hyponatremia, vomiting/diarrhea TECHNIQUE: Axial sections were acquired from the lung bases to the pubic symphysis. Coronal and sagittal reformats were performed. For radiation dose reduction, the following was used: automated exposure control, adjustment of mA and/or kV according to patient size. COMPARISON: [facility], CT, CT CHEST WO CON, 06/23/2018, 15:57. [facility], CT, CT ABDOMEN PELVIS W CON, 11/25/2023, 10:57. FINDINGS: Image quality: Diagnostic. Lower Chest: Left lingula pulmonary nodule measuring 1.5 cm, (01/25), unchanged, and remotely 1.4 cm in 2018. Aortic valvular calcification. URINARY: Right Kidney: Atrophic, unchanged. No stones or hydronephrosis. Right Ureter: No hydroureter. Left Kidney: No stones or hydronephrosis. Left Ureter: No hydroureter. Bladder: Distended. Normal wall thickness. No stones. ABDOMEN: Liver: No contour-deforming solid mass. Calcified granuloma. Gallbladder: Gallstone measuring 1.4 cm. Gallbladder is distended. Biliary ducts: CBD is mildly dilated, appears unchanged. Pancreas: No peripancreatic fluid collection. Spleen: Size is within normal limits. Adrenal Glands: No adrenal nodules. Stomach and Bowel: Liquid stool contents in the rectum and colon. This suggests diarrhea. There is edema within the fat near the rectum, right pericolic gutter, left mesentery. The appendix is partially visualized and is not distended. No small bowel obstruction. The stomach is decompressed. Peritoneum: No abnormal intraperitoneal fluid. No free air. Ventral Wall: Fat containing upper ventral abdominal wall hernia is similar. Abdominal Nodes: No enlarged retroperitoneal or mesenteric lymph nodes. Vessels: Aorta and inferior vena cava are normal in size. Extensive calcified plaque. PELVIS: Pelvic Organs: Unremarkable. Pelvic Nodes: Unremarkable. Miscellaneous: No inguinal hernias are seen. Bones: No compression fracture. Anterolisthesis of L4 on L5 measuring 0.7 cm. No suspicious osseous lesion. IMPRESSION: 1. Small bowel obstruction. No pneumoperitoneum. 2. Liquid stool contents in the distal colon and rectum suggesting diarrhea. Mesenteric, perirectal and right pericolic gutter edema. Findings suggesting AA colitis. 3. No kidney stones. Atrophic right kidney. 4. Distended gallbladder. Gallstone. 5. Lingular pulmonary nodule measuring 1.5 cm is not significantly changed compared to 2018 suggesting a benign etiology. Dictated by: Josr Martell M.D. on 07/20/2024 at 19:05 Approved by: Josr Martell M.D. on 07/20/2024 at 19:27
[2024-07-20 18:26] LABS: Adenovirus F 40/41 Not Detected (Not Detect); Astrovirus Not Detected (Not Detect); Campylobacter Detected (Not Detect); Clostridium difficile toxin AB Not Detected (Not Detect); Cryptosporidium Not Detected (Not Detect); Cyclospora cayetanensis Not Detected (Not Detect); Entamoeba histolytica Not Detected (Not Detect); Enteroaggregative E.coli Not Detected (Not Detect); Enteropathogenic E.coli Not Detected (Not Detect); Enterotoxigenic E.coli It/st Not Detected (Not Detect); Giardia lamblia Not Detected (Not Detect); Norovirus GI/GII Not Detected (Not Detect); Plesiomonsa shigelloides Not Detected (Not Detect); Rotavirus A Not Detected (Not Detect); Salmonella Not Detected (Not Detect); Sapovirus Not Detected (Not Detect); Shiga-like toxin-prod E.coli Not Detected (Not Detect); Shigella/Enteroinvasive E.coli Not Detected (Not Detect); Vibrio Not Detected (Not Detect); Vibrio cholerae Not Detected (Not Detect); Yersinia enterocolitica Not Detected (Not Detect)
[2024-07-20 18:39] LABS: Creatinine Urine Random 67.69 mg/dL; Sodium Urine Random 10 mmol/L (30-90)
--- NOTE | 2024-07-20 20:44 | PM.HP.1 ---
History of Present Illness History of Present Illness Date Patient Seen: 07/20/24 Chief complaint: diarrhea t-3 Narrative: 84 y/o with PMH of HTN, HLD, PAD, came to ER after she had diarrhea for 4-5 previous days, nausea, one episode of vomiting today. Workup shows campylobacter. Source likely septic tank that was just emptied. Coming dehydrated with CYNTHIA and mild hyperkalemia. [facility] Medical History Ventral hernia Osteoarthritis of right knee Arthritis of facet joint of cervical spine Osteoporosis Major depressive disorder, single episode, in full remission History of tobacco use Hernia of abdominal wall Solitary pulmonary nodule Surgical History Presence of left artificial knee joint Status post hysterectomy History of third molar tooth extraction Status post tubal ligation Family History Father Heart disease Grandfather Heart disease Grandmother Cancer Mother Cancer Grandfather Heart disease Grandmother Heart disease Sister Cancer Social History household members: significant other Smoking Status: Never smoker additional social history: no meat in 60 yrs back to playing tennis [facility] 06/2023 Med Home Medications and Allergies Home Medications Medication Instructions Recorded Confirmed Type ascorbic acid (vitamin C) 1,000 mg 1,000 mg PO DAILY 05/24/21 07/20/24 History tablet losartan 25 mg tablet See Rx Instructions .Route 11/13/23 07/20/24 Rx .COMPLEX #180 tabs amlodipine 5 mg tablet 5 mg PO DAILY for BP. take every 12/12/23 07/20/24 Rx day even if normal. #90 tabs rosuvastatin 40 mg tablet 40 mg PO DAILY #90 tabs 03/15/24 07/20/24 Rx aspirin 81 mg chewable tablet 07/20/24 History clopidogrel 75 mg tablet 75 mg PO DAILY 07/20/24 07/20/24 History Allergies Allergy/AdvReac Type Severity Reaction Status Date / Time No Known Drug Allergies Allergy Unknown Verified 12/22/23 14:10 [NO KNOWN DRUG ALLERGIES] Review of Systems Constitutional Comments: generalized weakness no fever or chills Cardiovascular Comments: w/o chest pain Respiratory Comments: w/o shortness of breath Gastrointestinal Comments: see hpi Genitourinary Comments: w/o dysuria Exam Vital Signs (past 8 hours): - 07/20/24 13:54 07/20/24 14:34 07/20/24 14:35 Temperature 97.7 F Pulse Rate 76 72 Respiratory Rate 16 Blood Pressure 197/81 H 152/67 H Pulse Oximetry 98 95 Oxygen Delivery Method Room Air 07/20/24 14:35 07/20/24 15:00 07/20/24 15:00 Temperature Pulse Rate 71 73 Respiratory Rate Blood Pressure 134/64 Pulse Oximetry 94 93 Oxygen Delivery Method 07/20/24 15:30 07/20/24 15:30 07/20/24 16:00 Temperature Pulse Rate 68 68 Respiratory Rate Blood Pressure 129/60 Pulse Oximetry 94 93 Oxygen Delivery Method 07/20/24 16:00 07/20/24 16:30 07/20/24 16:30 Temperature Pulse Rate 71 Respiratory Rate Blood Pressure 157/67 H 154/72 H Pulse Oximetry 97 Oxygen Delivery Method 07/20/24 17:00 07/20/24 17:05 07/20/24 17:05 Temperature Pulse Rate 74 75 Respiratory Rate Blood Pressure 169/70 H Pulse Oximetry 97 95 Oxygen Delivery Method 07/20/24 17:35 07/20/24 18:00 07/20/24 18:15 Temperature Pulse Rate 78 77 78 Respiratory Rate Blood Pressure Pulse Oximetry 95 94 94 Oxygen Delivery Method 07/20/24 18:15 07/20/24 18:39 07/20/24 19:00 Temperature Pulse Rate 78 Respiratory Rate Blood Pressure 161/72 H 148/69 H Pulse Oximetry 95 Oxygen Delivery Method 07/20/24 19:00 07/20/24 19:30 07/20/24 19:30 Temperature Pulse Rate 75 74 Respiratory Rate Blood Pressure 142/64 H Pulse Oximetry 94 95 Oxygen Delivery Method 07/20/24 20:00 07/20/24 20:01 07/20/24 20:01 Temperature Pulse Rate 77 76 Respiratory Rate 18 Blood Pressure 160/71 H Pulse Oximetry 94 94 Oxygen Delivery Method Oxygen Delivery Method Room Air Const Other: in no distress, at bedside Resp Other: normal respiratory effort Cardio Other: RRR GI Other: not distended Skin Other: w/o rashes Extrem Other: w/o swelling Psych Other: lucid Objective Labs 07/20/24 15:37 07/20/24 15:37 Labs: Laboratory Results - last 24 hr 07/20/24 07/20/24 07/20/24 14:25 15:37 16:48 WBC 5.5 RBC 3.88 L Hgb 11.4 L Hct 34.0 L MCV 87.6 MCH 29.3 MCHC 33.5 RDW 15.8 H Plt Count 298 Neut % (Auto) 67.6 Lymph % (Auto) 11.3 L [place] % (Auto) 19.9 H Eos % (Auto) 0.9 L Baso % (Auto) 0.3 Neut # (Auto) 3700 Lymph # (Auto) 600 L [place] # (Auto) 1100 H Eos # (Auto) 0 Baso # (Auto) 0 Sodium 124 L Potassium 5.3 H Chloride 91 L Carbon Dioxide 24 BUN 19 H Creatinine 2.28 H Estimated GFR 21 L BUN/Creatinine Ratio 8.3 Glucose 94 Calcium 9.0 Total Bilirubin 0.6 AST 26 ALT 13 Alkaline Phosphatase 55 Total Protein 6.0 L Albumin 3.5 Globulin 2.5 Albumin/Globulin Ratio 1.4 Lipase 141 Urine RBC None seen Urine WBC 0-1/hpf Ur Squamous Epith Cells None seen Urine Bacteria None seen Ur Culture Indicated? Specimen cultured Vol Urine Centrifuged 10ml (spun) Ur Random Sodium 10 L Urine Creatinine 67.69 Stl C. cayetanensis PCR Not detected Stool Rotavirus (PCR) Not detected Stool Adenovirus (PCR) Not detected Stool Astrovirus (PCR) Not detected Stool Cryptosporidium PCR Not detected Stl E.coli Shiga Tox PCR Not detected St Sh/Enteroin Ecoli PCR Not detected Stl Enterotoxigenic E PCR Not detected Stool EPEC (PCR) Not detected Stl E. histolytica PCR Not detected Stool Giardia Lamblia PCR Not detected Stool Sapovirus (PCR) Not detected Stl P. shigelloides PCR Not detected St Y.enterocolitica PCR Not detected Stool Vibrio (PCR) Not detected Stl Vibrio cholerae PCR Not detected Stl Enteroaggr Ecoli PCR Not detected Stl Norovirus GI/GII PCR Not detected Campylobacter (PCR) Detected C. difficile Tox (PCR) Not detected Salmonella (PCR) Not detected Assessment & Plan Assessment and plan (1) Enteritis due to Campylobacter species: Status: Acute (2) CYNTHIA (acute kidney injury): Status: Acute (3) Hyponatremia: Status: Acute (4) Hypertension: Qualifiers: Hypertension type: primary hypertension Qualified Code(s): I10 - Essential (primary) hypertension Status: Acute (5) Hyperlipidemia, mixed: Status: Acute (6) Severe peripheral arterial disease: Status: Acute Assessment & Plan narrative: Campylobacter Enteritis - Azithromycin, IVFs, antiemetic CYNTHIA - IVFs - her Rt kidney is atrophied - holding ACEI HTN - amlodipine - prn hydralazine if unable to hold po PAD - Plavix, restart statin with improved GFR Mixed HLD - as above DVT prophylaxis - heparin Time-Based Coding :: [TOTAL MINUTES] spent with patient and on the chart (including review of chart, obtaining history, exam, reviewing outside data, placing orders, documenting exam and treatment plan, and counseling patient) on [DATE].
[2024-07-20] MEDS: SODIUM CHLORIDE 0.9% 1,000 ML 100 ML IV (22:40)
[2024-07-20] MEDS: PROCHLORPERAZINE 10 MG/2 ML VIAL 5 MG IV (22:41)
[2024-07-20] MEDS: AZITHROMYCIN 500 MG in DEXTROSE 5% IN WATER 250 ML 250 MG IV (22:41)
[2024-07-20] MEDS: HEPARIN 5,000 UNIT/ML VIAL 5000 UNIT SUBCUT (22:42)
[2024-07-21 06:16] LABS: Add Manual Diff / Slide Review NO; Basophils Absolute Auto 0 /uL (0-100); Basophils Percent Auto 0.6 % (0-2); Eosinophils Absolute Auto 100 /uL (0-450); Eosinophils Percent Auto 1.4 % (2-4); Hematocrit 32.8 % (36-46); Lymphocytes Absolute Auto 800 /uL (1100-4500); Lymphocytes Percent Auto 16.5 % (25-40); Mean Corpuscular HGB Conc 33.6 % (30-36); Mean Corpuscular Hemoglobin 29.5 PG (26-34); Mean Corpuscular Volume 87.8 fL (80-100); Monocytes Absolute Auto 1000 /uL (0-900); Monocytes Percent Auto 19.5 % (3-14); Neutrophils Absolute Auto 3100 /uL (1500-7000); Platelet Count 316 X10^3/uL (150-400); Red Blood Cell Count 3.74 X10^6/uL (4.0-5.2); Red Cell Distribution Width 15.6 % (11.6-14.8)
[2024-07-21 06:23] LABS: Blood Urea Nitrogen 16 mg/dL (7-17); Calcium 8.2 mg/dL (8.4-10.2); Carbon Dioxide 24 mmol/L (22-32); Chloride 101 mmol/L (98-107); Estimated Glomerular Filt Rate 28 mL/min (>60); Glucose 68 mg/dL (80-110); HEMOLYSIS < 15 (0-50); Potassium 4.4 mmol/L (3.4-5.1); Sodium 131 mmol/L (137-145)
[2024-07-21 08:00] VITALS: BP 120/73; PULSE 74; RESP 14; TEMP 36.9; O2SAT 96
--- NOTE | 2024-07-21 08:34 | CM.DANOTE ---
Initial DCP Assessment Visit Note Reviewed EMR and team rounds for status updates. Met with pt at bedside to introduce self and role, pt was found to be alert/oriented, resting in bed. She lives independently with her in their own home on [address]. She may need a medical priority boarding pass once she's medically stable for d/c if there are no reservations available. Spouse will transport. Payor: Medicare, [employer] PCP: Roslyn Espinosa Pt is a 84 year-old F who presented to the ED last evening with c/o 5-days of diarrhea, etiology unknown, however her thought that maybe it was from having contact with the hose that was recently used for draining their septic tank. Labs drawn in the ED were positive for the campylobacter bacteria. She was also found to have hyponatremia, dehydration. The plan was made to admit her and tx for hyponatremia, CYNTHIA, diarrhea, and bacteremia from the campylobacter bacteria. She was started on IV fluids, given Zofran, and started on IV antibiotics. DCP will continue to monitor for home d/c and support needs. Discharge Planning/Care Management Advanced directive, confirm from FAMILY Start: 07/20/24 21:28 Freq: Q24H Status: Active Protocol: Document 07/20/24 21:28 MM (Rec: 07/21/24 03:01 MM [id number]) Advance Directive, confirm on record Time 23:00 Person contacted Patient Copy received No CM Discharge Assessment Start: 07/21/24 08:32 Freq: Status: Active Protocol: Document 07/21/24 08:32 DPL (Rec: 07/21/24 08:33 DPL [id number]) Discharge Planning Assessment Assigned [employer] Worker VITO Roy Advance Directives? Yes Advance Directives on File No History Provided By Patient,Medical Record Has Patient been admitted in last 30 No days? Prior Living Arrangements House Household Members significant other Type of transporation used prior to Drives own vehicle admit Independent with ADL's Yes Is patient alert and oriented? Yes Comment No anticipated home d/c needs identified at this time. Barriers to Discharge No Discharge Plan Home Transportation Arrangement Spouse Referrals Initiated None needed Whiteboard Updated in Patient Room with Yes name and ext. # of [employer]aking [employer] Worker Review Status In Process Please Provide Date Initial DC 07/21/24 Assessment Was Performed
[2024-07-21] MEDS: AMLODIPINE 5 MG TABLET PO ×2 (09:02→21:31)
[2024-07-21] MEDS: CLOPIDOGREL 75 MG TABLET PO (09:02)
[2024-07-21] MEDS: SODIUM CHLORIDE 0.9% 1,000 ML 100 ML IV ×2 (09:03→19:57)
--- NOTE | 2024-07-21 10:32 | DIET.CONS ---
Dietary Consultation Note Admission Date: 07/20/2024 19:59 Assessment: 84 y F presents with diarrhea for last 4-5 d and nausea. Found to have enteritis due to campylobacter species. Nutrition screened for low MNA. Met w/ pt at bedside. Reports no intake for 4 days before admission. Before then, normal appetite, which is reduced, leading to lack of mid-day eating. Normal weight 105-110 lb (47.7-50 kg). Diet recall: B- serving of quinoa, egg, and vegs D- salad + protein source Ht: 166.37 cm Wt: 48.988 kg (108 lb) BMI: 17.6 Underweight UBW: 49.158 kg on 12/12/23, no significant weight loss Last BM: 07/21/24 (07/21/24 08:00) MNA: 9 Magdaleno Score: 21 Diet: 07/21/24 Breakfast Heart Healthy Diet Diet Modifications: Nutrition Percent Meal Consumed 15 07/21/24 09:00 Labs: RBC 3.74 X10^6/uL (4.0-5.2) L 07/21/24 05:20 Hgb 11.0 g/dL (12.0-16.0) L 07/21/24 05:20 Hct 32.8 % (36-46) L 07/21/24 05:20 Creatinine 1.77 mg/dL (0.52-1.04) H 07/21/24 05:20 Nutrition Diagnosis: Inadequate oral intake r/t alterations in GI tract aeb 4 days with no food intake Underweight BMI r/t prolonged inadequate intake aeb 17.6 BMI Interventions: 1. ONS/protein supplement trial 2. Discussed additional calorie/protein lunch options to include EER: [id number] kcals (35-40 kcals/kg per BMI), 60 g protein (1.25 g/kg) Monitoring/Evaluations: po intakes, supplement tolerance Electronically Signed by: Lilly Schroeder 07/21/24 10:32 Clinical Dietitian [address] [id number]
[2024-07-21 12:00] VITALS: BP 132/63; PULSE 67; RESP 16; TEMP 37.2; O2SAT 95
--- NOTE | 2024-07-21 12:43 | PM.PN.1 ---
Subjective Subjective Interval history: 84 F admitted with campylobacter. Still having loose stools today, tolerating breakfast this morning. Denies melena or BRBPR. Stools are green. Exam Vital Signs (past 8 hours): - 07/21/24 08:00 Temperature 98.4 F Pulse Rate 74 Respiratory Rate 14 Blood Pressure 120/73 Pulse Oximetry 96 Oxygen Delivery Method Room Air Const Other: in no distress, mildly ill appearing, fatigued Resp Other: CTA b/l Cardio Other: RRR no m/r/g GI Other: S NT ND Extrem Other: No edema joint effusions Objective Labs 07/21/24 05:20 07/21/24 05:20 Labs: Laboratory Results - last 24 hr 07/20/24 07/20/24 07/20/24 14:25 15:37 16:48 WBC 5.5 RBC 3.88 L Hgb 11.4 L Hct 34.0 L MCV 87.6 MCH 29.3 MCHC 33.5 RDW 15.8 H Plt Count 298 Neut % (Auto) 67.6 Lymph % (Auto) 11.3 L [place] % (Auto) 19.9 H Eos % (Auto) 0.9 L Baso % (Auto) 0.3 Neut # (Auto) 3700 Lymph # (Auto) 600 L [place] # (Auto) 1100 H Eos # (Auto) 0 Baso # (Auto) 0 Sodium 124 L Potassium 5.3 H Chloride 91 L Carbon Dioxide 24 BUN 19 H Creatinine 2.28 H Estimated GFR 21 L BUN/Creatinine Ratio 8.3 Glucose 94 Calcium 9.0 Total Bilirubin 0.6 AST 26 ALT 13 Alkaline Phosphatase 55 Total Protein 6.0 L Albumin 3.5 Globulin 2.5 Albumin/Globulin Ratio 1.4 Lipase 141 Urine RBC None seen Urine WBC 0-1/hpf Ur Squamous Epith Cells None seen Urine Bacteria None seen Ur Culture Indicated? Specimen cultured Vol Urine Centrifuged 10ml (spun) Ur Random Sodium 10 L Urine Creatinine 67.69 Stl C. cayetanensis PCR Not detected Stool Rotavirus (PCR) Not detected Stool Adenovirus (PCR) Not detected Stool Astrovirus (PCR) Not detected Stool Cryptosporidium PCR Not detected Stl E.coli Shiga Tox PCR Not detected St Sh/Enteroin Ecoli PCR Not detected Stl Enterotoxigenic E PCR Not detected Stool EPEC (PCR) Not detected Stl E. histolytica PCR Not detected Stool Giardia Lamblia PCR Not detected Stool Sapovirus (PCR) Not detected Stl P. shigelloides PCR Not detected St Y.enterocolitica PCR Not detected Stool Vibrio (PCR) Not detected Stl Vibrio cholerae PCR Not detected Stl Enteroaggr Ecoli PCR Not detected Stl Norovirus GI/GII PCR Not detected Campylobacter (PCR) Detected C. difficile Tox (PCR) Not detected Salmonella (PCR) Not detected 07/21/24 05:20 WBC 5.0 RBC 3.74 L Hgb 11.0 L Hct 32.8 L MCV 87.8 MCH 29.5 MCHC 33.6 RDW 15.6 H Plt Count 316 Neut % (Auto) 62.0 Lymph % (Auto) 16.5 L [place] % (Auto) 19.5 H Eos % (Auto) 1.4 L Baso % (Auto) 0.6 Neut # (Auto) 3100 Lymph # (Auto) 800 L [place] # (Auto) 1000 H Eos # (Auto) 100 Baso # (Auto) 0 Sodium 131 L Potassium 4.4 Chloride 101 Carbon Dioxide 24 BUN 16 Creatinine 1.77 H Estimated GFR 28 L BUN/Creatinine Ratio 9.0 Glucose 68 L Calcium 8.2 L Total Bilirubin AST ALT Alkaline Phosphatase Total Protein Albumin Globulin Albumin/Globulin Ratio Lipase Urine RBC Urine WBC Ur Squamous Epith Cells Urine Bacteria Ur Culture Indicated? Vol Urine Centrifuged Ur Random Sodium Urine Creatinine Stl C. cayetanensis PCR Stool Rotavirus (PCR) Stool Adenovirus (PCR) Stool Astrovirus (PCR) Stool Cryptosporidium PCR Stl E.coli Shiga Tox PCR St Sh/Enteroin Ecoli PCR Stl Enterotoxigenic E PCR Stool EPEC (PCR) Stl E. histolytica PCR Stool Giardia Lamblia PCR Stool Sapovirus (PCR) Stl P. shigelloides PCR St Y.enterocolitica PCR Stool Vibrio (PCR) Stl Vibrio cholerae PCR Stl Enteroaggr Ecoli PCR Stl Norovirus GI/GII PCR Campylobacter (PCR) C. difficile Tox (PCR) Salmonella (PCR) [facility] Medical History Ventral hernia Osteoarthritis of right knee Arthritis of facet joint of cervical spine Osteoporosis Major depressive disorder, single episode, in full remission History of tobacco use Hernia of abdominal wall Solitary pulmonary nodule Surgical History Presence of left artificial knee joint Status post hysterectomy History of third molar tooth extraction Status post tubal ligation Family History Father Heart disease Grandfather Heart disease Grandmother Cancer Mother Cancer Grandfather Heart disease Grandmother Heart disease Sister Cancer Social History household members: significant other Smoking Status: Never smoker additional social history: no meat in 60 yrs back to playing tennis [facility] 06/2023 Assessment & Plan Assessment & Plan narrative: Campylobacter Enteritis - Continue azithromycin 500 q24 IV, and IV fluids today given CYNTHIA and improved, but still decreased PO intake. CYNTHIA - continue IV fluid - urinary retention noted in the ER, continue hickey, reassess tomorrow, consider outpatient urology if still retaining - continue to hold losartan - Cr improved today from 2.28 to 1.77 HTN - continue home amlodipine - continue to hold losartan PAD - Continue home plavix and statin Mixed HLD - as above Code: Full, surrogate she states is Candido. DVT prophylaxis - sq heparin Dispo: inpatient, likely home in 1-2 days Time-Based Coding :: [TOTAL MINUTES] spent with patient and on the chart (including review of chart, obtaining history, exam, reviewing outside data, placing orders, documenting exam and treatment plan, and counseling patient) on [DATE]. Quality VTE Deep Vein Thrombosis/Pulmonary Embolism Present on Admission: No
[2024-07-21 16:00] VITALS: BP 144/81; PULSE 72; RESP 16; TEMP 36.7; O2SAT 100
[2024-07-21] MEDS: AZITHROMYCIN 500 MG in DEXTROSE 5% IN WATER 250 ML 250 MG IV (19:58)
[2024-07-21 20:12] VITALS: BP 138/63; PULSE 66; RESP 17; O2SAT 98
[2024-07-21] MEDS: ATORVASTATIN 20 MG TABLET 40 MG PO (21:31)
[2024-07-22] MEDS: SODIUM CHLORIDE 0.9% 1,000 ML 100 ML IV (06:45)
[2024-07-22 08:13] VITALS: BP 132/69; PULSE 60; RESP 18; TEMP 36.8; O2SAT 98
[2024-07-22] MEDS: CLOPIDOGREL 75 MG TABLET PO (08:41)
--- NOTE | 2024-07-22 11:52 | P.DS_ITS ---
History of Present Illness History of Present Illness Chief complaint: diarrhea t-3 Narrative: From H&P: 84 y/o with PMH of HTN, HLD, PAD, came to ER after she had diarrhea for 4-5 previous days, nausea, one episode of vomiting today. Workup shows campylobacter. Source likely septic tank that was just emptied. Coming dehydrated with CYNTHIA and mild hyperkalemia. Discharge Providers Provider Date of admission: 07/20/24 19:59 Discharge Date: 07/22/24 Primary care physician: Roslyn Espinosa MD Consults: None. Discharge provider: Gerson Lopez MD Summary Hospital Course Discharge Diagnosis: 1. Campylobacter Enteritis, present on admission and resolved. 2. CYNTHIA, present on admission and improved. 3. HTN, present admission and stable. 4. PAD, present admission and stable. 5. Mixed HLD, present admission and stable. 6. Benign 1.5 cm lingular pulmonary nodule which is unchanged from 2018, present on admission and stable. Hospital Course: She was admitted with gastroenteritis from Campylobacter as well as volume depletion and CYNTHIA. She was treated with azithromycin as well as IV fluids and improved. Her diarrhea resolved completely and she had a formed stool in the day of discharge. There was no bloody diarrhea. She had no fevers. She was felt to be stable for discharge and antibiotics will not be continued as all symptoms have resolved and she was not at high risk for adverse outcomes of her diarrhea. We will hold losartan for the next 5 days given her transient CYNTHIA from volume depletion. This can be resumed at the time of follow up with PCP. Status at Discharge Cognitive/behavioral status at discharge: oriented Functional status at discharge: independent ambulation Overall status at discharge: patient is back to baseline Time Spent with Patient Time spent: Greater than 30 minutes Exam Vital Signs (past 8 hours): - 07/22/24 08:13 Temperature 98.2 F Pulse Rate 60 Respiratory Rate 18 Blood Pressure 132/69 Pulse Oximetry 98 Oxygen Delivery Method Room Air Narrative Exam Narrative: NAD, alert and oriented. Fluent speech. Lungs are clear, normal rate and effort. Heart is regular, no murmur gallop or rub. Abdomen is soft, non distended. Extremities are free of edema. Objective Imaging CT scan - abdomen: Radiologist's impression: 1. Small bowel obstruction. No pneumoperitoneum. 2. Liquid stool contents in the distal colon and rectum suggesting diarrhea. Mesenteric, perirectal and right pericolic gutter edema. Findings suggesting AA colitis. 3. No kidney stones. Atrophic right kidney. 4. Distended gallbladder. Gallstone. 5. Lingular pulmonary nodule measuring 1.5 cm is not significantly changed compared to 2018 suggesting a benign etiology. Labs 07/22/24 12:05 07/22/24 12:05 [facility] Medical History Ventral hernia Osteoarthritis of right knee Arthritis of facet joint of cervical spine Osteoporosis Major depressive disorder, single episode, in full remission History of tobacco use Hernia of abdominal wall Solitary pulmonary nodule Surgical History Presence of left artificial knee joint Status post hysterectomy History of third molar tooth extraction Status post tubal ligation Family History Father Heart disease Grandfather Heart disease Grandmother Cancer Mother Cancer Grandfather Heart disease Grandmother Heart disease Sister Cancer Social History household members: significant other Smoking Status: Never smoker additional social history: no meat in 60 yrs back to playing tennis [facility] 06/2023 Discharge Assessment & Plan Assessment and Plan Assessment: 1. Campylobacter Enteritis, present on admission and resolved. 2. CYNTHIA, present on admission and improved. 3. HTN, present admission and stable. 4. PAD, present admission and stable. 5. Mixed HLD, present admission and stable. 6. Benign 1.5 cm lingular pulmonary nodule which is unchanged from 2018, present on admission and stable. Plan of Treatment: Discharge home. Stop antibiotics. Hold losartan for 5 days until follow up with PCP and then resume. Indication was CYNTHIA. Discharge Plan Discharge Plan Patient Disposition: Home Provider Discharge Comment: Stable for discharge home. We will hold losartan for the next 5 days and then resume. Discharge orders & Medications Prescriptions: Continued amlodipine 5 mg tablet 5 mg PO DAILY Qty: 90 2RF Rx Instructions: every night rosuvastatin 40 mg tablet 40 mg PO DAILY Qty: 90 1RF clopidogrel 75 mg tablet 75 mg PO DAILY aspirin 81 mg Tablet,Chewable 81 mg PO 1XD ascorbic acid (vitamin C) 1,000 mg tablet 1,000 mg PO DAILY Discontinued losartan 25 mg tablet See Rx Instructions .ROUTE .COMPLEX Qty: 180 3RF Dose Instruction: TAKE THREE TABLETS BY MOUTH EVERY DAY Rx Instructions: Take 2 PO QAM and 1 PO QPM Follow up/Referrals: Roslyn Espinosa MD [Primary Care Provider] - Activity Restrictions/Additional Instructions: As tolerated. Discharge Health Status Multidrug resistant organism: No MDRO Diet/Activity/Treatments Diet: Regular Skin/Wound/Dressing Care Report to your healthcare provider any signs of infection, such as:: chills, fever, night sweats and increased pain Visit Report/Discharge Packet Instructions: DI for Bacterial Gastroenteritis -- Adult Stand Alone Forms: Patient Portal/API Discharge Data Primary Care Provider: Roslyn Espinosa Quality VTE Deep Vein Thrombosis/Pulmonary Embolism Present on Admission: No
[2024-07-22 12:14] LABS: Hematocrit 34.3 % (36-46); Hemoglobin 11.4 g/dL (12.0-16.0); Mean Corpuscular HGB Conc 33.2 % (30-36); Mean Corpuscular Hemoglobin 29.4 PG (26-34); Mean Corpuscular Volume 88.5 fL (80-100); Platelet Count 397 X10^3/uL (150-400); Red Blood Cell Count 3.88 X10^6/uL (4.0-5.2); Red Cell Distribution Width 16.2 % (11.6-14.8); White Blood Cell Count 5.2 X10^3/uL (4.5-11.0)
[2024-07-22 12:26] LABS: BUN Creatinine Ratio 11.5 (6-22); Blood Urea Nitrogen 12 mg/dL (7-17); Calcium 8.3 mg/dL (8.4-10.2); Carbon Dioxide 25 mmol/L (22-32); Chloride 106 mmol/L (98-107); Estimated Glomerular Filt Rate 53 mL/min (>60); Glucose 88 mg/dL (80-110); HEMOLYSIS < 15 (0-50); Potassium 4.3 mmol/L (3.4-5.1); Sodium 138 mmol/L (137-145)
== END 2024-07-22 13:13 | disposition home or self-care (01) | DRG 372 ==
LOC: ED 18:17 → AC 20:00
PROVIDERS: Hospitalist; Admitting Provider Internal Medicine; Emergency Provider Emergency Medicine; PCP Family Medicine; Referring Provider Emergency Medicine; Visit Provider Internal Medicine
DX: A04.5 Campylobacter enteritis (principal); E87.1 Hypo-osmolality and hyponatremia; N17.9 Acute kidney failure, unspecified; N39.0 Urinary tract infection, site not specified; E87.5 Hyperkalemia; I10 Essential (primary) hypertension; E78.2 Mixed hyperlipidemia; I73.9 Peripheral vascular disease, unspecified; R33.9 Retention of urine, unspecified; R91.1 Solitary pulmonary nodule; E86.9 Volume depletion, unspecified; Z79.02 Long term (current) use of antithrombotics/antiplatelets
CPT/HCPCS: 36415; 74176; 80048; 80053; 81002; 81003; 81015; 82570; 83690; 84300; 85025; 85027; 87086; 87507; 96360; 99284; J0780; J1644

== ENCOUNTER → 2024-12-31 08:45 | Outpatient (CLI) | payer MEDICARE, OTHER, SELFPAY ==
[2024-12-07 12:44] VITALS: BMI 17.6
[2024-12-31 19:10] LABS: Alanine Aminotransferase 22 IU/L (<35); Albumin 4.4 g/dL (3.5-5.0); Albumin Globulin Ratio 1.9 (1.0-2.8); Alkaline Phosphatase 78 U/L (38-126); Aspartate Aminotransferase 32 IU/L (14-36); BUN Creatinine Ratio 34.8 (6-22); Bilirubin Total 0.6 mg/dL (0.2-1.3); Blood Urea Nitrogen 23 mg/dL (7-17); Calcium 9.6 mg/dL (8.4-10.2); Carbon Dioxide 25 mmol/L (22-32); Chloride 104 mmol/L (98-107); Cholesterol 121 mg/dL (140-199); Estimated Glomerular Filt Rate > 60 mL/min (>60); Globulin 2.3 g/dL (1.7-4.1); Glucose 82 mg/dL (80-110); HDL Cholesterol 61 mg/dL (40-60); HEMOLYSIS 16 (0-50); LDL Cholesterol Calculated 51 mg/dL (<100); Potassium 4.4 mmol/L (3.4-5.1); Sodium 136 mmol/L (137-145); Total Protein 6.7 g/dL (6.3-8.2); Triglycerides 44 mg/dL (35-150)
[2024-12-31 19:33] LABS: Add Manual Diff / Slide Review NO; Basophils Absolute Auto 100 /uL (0-100); Basophils Percent Auto 2.2 % (0-2); Eosinophils Absolute Auto 200 /uL (0-450); Eosinophils Percent Auto 3.4 % (2-4); Hematocrit 38.5 % (36-46); Hemoglobin 12.7 g/dL (12.0-16.0); Lymphocytes Absolute Auto 1400 /uL (1100-4500); Lymphocytes Percent Auto 26.6 % (25-40); Mean Corpuscular Hemoglobin 30.5 PG (26-34); Mean Corpuscular Volume 92.4 fL (80-100); Monocytes Absolute Auto 500 /uL (0-900); Monocytes Percent Auto 8.9 % (3-14); Neutrophils Absolute Auto 3100 /uL (1500-7000); Neutrophils Percent Auto 58.9 % (50-75); Platelet Count 357 X10^3/uL (150-400); Red Blood Cell Count 4.17 X10^6/uL (4.0-5.2); Red Cell Distribution Width 14.1 % (11.6-14.8); White Blood Cell Count 5.2 X10^3/uL (4.5-11.0)
[2024-12-31 19:36] LABS: Thyroid Stimulating Hormone 2.74 uIU/mL (0.47-4.68)
== END ==
PROVIDERS: PCP Family Medicine; Visit Provider Family Medicine
DX: E78.2 Mixed hyperlipidemia (principal); N17.9 Acute kidney failure, unspecified; N26.1 Atrophy of kidney (terminal); I73.9 Peripheral vascular disease, unspecified; Z95.828 Presence of other vascular implants and grafts; I10 Essential (primary) hypertension; C53.9 Malignant neoplasm of cervix uteri, unspecified
CPT/HCPCS: 80053; 80061; 84443; 85025

== ENCOUNTER → 2025-03-09 13:36 | Outpatient (CLI) | payer MEDICARE, OTHER, SELFPAY ==
[2024-12-07 12:44] VITALS: BMI 17.6
[2025-03-09 19:15] LABS: Add Manual Diff / Slide Review NO; Basophils Absolute Auto 0 /uL (0-100); Basophils Percent Auto 0.6 % (0-2); Eosinophils Absolute Auto 100 /uL (0-450); Eosinophils Percent Auto 1.9 % (2-4); Hematocrit 39.9 % (36-46); Hemoglobin 13.3 g/dL (12.0-16.0); Lymphocytes Absolute Auto 1200 /uL (1100-4500); Lymphocytes Percent Auto 19.8 % (25-40); Mean Corpuscular HGB Conc 33.2 % (30-36); Mean Corpuscular Hemoglobin 30.7 PG (26-34); Mean Corpuscular Volume 92.7 fL (80-100); Monocytes Absolute Auto 500 /uL (0-900); Monocytes Percent Auto 8.5 % (3-14); Neutrophils Absolute Auto 4200 /uL (1500-7000); Neutrophils Percent Auto 69.2 % (50-75); Platelet Count 342 X10^3/uL (150-400); Red Blood Cell Count 4.31 X10^6/uL (4.0-5.2); Red Cell Distribution Width 13.4 % (11.6-14.8); White Blood Cell Count 6.1 X10^3/uL (4.5-11.0)
[2025-03-09 19:24] LABS: C-Reactive Protein Quant < 0.5 mg/dL (<1.0)
[2025-03-09 20:03] LABS: Erythrocyte Sedimentation Rate 11 MM/HR (0-20)
== END ==
PROVIDERS: PCP Family Medicine; Visit Provider Orthopaedic Surgery
DX: Z96.652 Presence of left artificial knee joint (principal)
CPT/HCPCS: 85025; 85651; 86140

== ENCOUNTER → 2025-09-13 12:05 | Outpatient (CLI) | payer MEDICARE, OTHER, SELFPAY ==
[2024-12-07 12:44] VITALS: BMI 17.6
[2025-09-13 18:54] LABS: Hematocrit 40.0 % (36-46); Hemoglobin 13.1 g/dL (12.0-16.0); Mean Corpuscular HGB Conc 32.6 % (30-36); Mean Corpuscular Hemoglobin 30.4 PG (26-34); Mean Corpuscular Volume 93.2 fL (80-100); Platelet Count 380 X10^3/uL (150-400)
[2025-09-13 19:05] LABS: Alanine Aminotransferase 16 IU/L (<35); Albumin 4.2 g/dL (3.5-5.0); Albumin Globulin Ratio 1.8 (1.0-2.8); Alkaline Phosphatase 70 U/L (38-126); Blood Urea Nitrogen 23 mg/dL (7-17); Calcium 9.7 mg/dL (8.4-10.2); Carbon Dioxide 29 mmol/L (22-32); Chloride 103 mmol/L (98-107); Cholesterol 131 mg/dL (140-199); Estimated Glomerular Filt Rate > 60 mL/min (>60); Globulin 2.4 g/dL (1.7-4.1); Glucose 94 mg/dL (70-99); HDL Cholesterol 73 mg/dL (40-60); HEMOLYSIS < 15 (0-50); Potassium 4.7 mmol/L (3.4-5.1); Sodium 137 mmol/L (137-145); Total Protein 6.6 g/dL (6.3-8.2); Triglycerides 79 mg/dL (35-150)
== END ==
PROVIDERS: PCP Family Medicine; Visit Provider Family Medicine
DX: I10 Essential (primary) hypertension (principal); E78.2 Mixed hyperlipidemia; N26.1 Atrophy of kidney (terminal); I73.9 Peripheral vascular disease, unspecified
CPT/HCPCS: 80053; 80061; 85027

== ENCOUNTER → 2025-11-01 16:22 | Outpatient (CLI) | payer MEDICARE, OTHER, SELFPAY ==
[2024-12-07 12:44] VITALS: BMI 17.6
== END ==
LOC: LAB 16:22
PROVIDERS: PCP Family Medicine; Visit Provider Family Medicine
DX: N39.0 Urinary tract infection, site not specified (principal)
CPT/HCPCS: 87077; 87086